=== PATIENT | female | born 1975 | race Caucasian/White ===

== ENCOUNTER → 2017-09-24 | Outpatient (CLI) | payer OTHER ==
[~2017-09-24] MED LIST: ALBUAER2 INH; ALPR-385 PO; BUPR-79 PO; FLNIN INH; LEVO200T PO; TNR25 PO; ZLF/100 PO
== END | disposition home or self-care (01) ==
LOC: C.PAPS 11:06
PROVIDERS: ATTEND Obstetrics & Gynecology
DX: Z01.411 Encounter for gynecological examination (general) (routine) with abnormal findings (principal); R87.612 Low grade squamous intraepithelial lesion on cytologic smear of cervix (LGSIL)